=== PATIENT | female | born 1950 | race Caucasian/White ===

== ENCOUNTER 2023-05-14 15:31 | Emergency (ER) | payer MEDICARE, SELFPAY ==
[2023-05-14] VITALS (10 sets, daily range): BP systolic 115–155; BP diastolic 66–81; PULSE 64–74; RESP 15–16; TEMP 36.7; O2SAT 93–98; BMI 22.6
--- NOTE | 2023-05-14 15:39 | XR_ITS ---
FINAL REPORT CLINICAL HISTORY: fall, hip and knee pain COMPARISON: None FINDINGS: AP and lateral views of the left tibia and fibula were obtained. There is no prior exam for comparison. There is no acute fracture of the left tibia or fibula. On the lateral view only there is irregularity of the distal femur, and appears to represent a fracture. The knee and ankle appear intact. The soft tissues are normal. IMPRESSION: No acute osseous abnormality of the left tibia or fibula. On the lateral view only, there is irregularity of the distal femur which appears to represent a nondisplaced fracture. Reviewed, Interpreted and Dictated by David Amato III, MD Transcribed by Adeline Navarro Authenticated and [facility]
--- NOTE | 2023-05-14 15:39 | XR_ITS ---
FINAL REPORT CLINICAL HISTORY: fall, hip and knee pain FINDINGS: .2 views of the left femur were obtained The radiographs are suboptimal. Postoperative changes are seen from left hip arthroplasty. There is irregularity of the distal femur best visualized on the lateral view. This is most worrisome for a nondisplaced fracture. Osteopenia is noted. IMPRESSION: Findings worrisome for a nondisplaced fracture of the distal femur. Follow-up radiographs or CT could further evaluate. Authenticated and [facility]
--- NOTE | 2023-05-14 15:39 | XR_ITS ---
FINAL REPORT CLINICAL HISTORY: fall, hip and knee pain COMPARISON: None FINDINGS: AP and frog leg views of the left hip were obtained. There is no prior exam for comparison. There is no acute fracture or dislocation. The patient has undergone a prior left hip arthroplasty. There is slight irregularity of the inferior pubic ramus that may represent a remote fracture. Soft tissues are within normal limits. IMPRESSION: No acute osseous abnormality of the left hip. Prior left hip arthroplasty. Slight irregularity of the inferior pubic ramus that may represent a remote fracture. Reviewed, Interpreted and Dictated by Davdi Amato III, MD Transcribed by Adeline Navarro Authenticated and [facility]
--- NOTE | 2023-05-14 15:39 | XR_ITS ---
FINAL REPORT CLINICAL HISTORY: fall, hip and knee pain COMPARISON: Prior femur film 05/14/2023 FINDINGS: 3 views of the left knee reveal irregularity of the posterior aspect of the lateral femoral condyle consistent with a nondisplaced fracture. The bony alignment is normal. A moderate joint effusion or hemarthrosis is present. There is soft tissue fullness in the popliteal fossa that may represent a popliteal cyst. IMPRESSION: Irregularity of the posterior aspect of the lateral femoral condyle consistent with a nondisplaced fracture. A moderate effusion or hemarthrosis is present. Reviewed, Interpreted and Dictated by David Amato III, MD Transcribed by Adeline Navarro Authenticated and . [facility]
--- NOTE | 2023-05-14 15:49 | HMH.EDGENADL ---
Discharge Plan Disposition Patient Disposition: Home, Self-Care Condition: Good Prescriptions Prescriptions: New oxycodone 5 mg tablet 5 mg PO Q6H PRN (Reason: pain) Qty: 10 0RF No Action atorvastatin 20 mg tablet 20 mg PO DAILY glipizide 5 mg tablet 5 mg PO DAILY dapagliflozin propanediol [Farxiga] 10 mg tablet 10 mg PO DAILY famotidine 20 mg tablet 20 mg PO DAILY metformin 1,000 mg tablet 1,000 mg PO BID losartan 25 mg tablet 25 mg PO DAILY furosemide 20 mg tablet 20 mg PO DAILY loratadine 10 mg tablet 10 mg PO DAILY Eliquis 5 mg tablet 5 mg PO DAILY Referrals Follow up/Referrals: Yvette Gaspar PA [Primary Care Provider] - See instructions Donell Shin DO [Staff Physician] - See instructions Activity Restrictions/Add. Instructions Additional Instructions/Restrictions: Call your family doctor to establish care for this visit to the emergency department and schedule follow-up within 48 hours to ensure improvement. If you have any worsening of your condition or any other concerning signs or symptoms, return to the emergency department or your primary care doctor for further evaluation. Do not bear weight/walk on that leg until following up with Dr. Shin with orthopedics. His information has been listed here, call him to schedule further follow-up. Take Tylenol 1000 mg every 6 hours (4 times daily) and ibuprofen 400 mg every 6 hours (4 times daily) as needed with food and water to prevent GI upset and kidney damage. Oxycodone has been sent to the pharmacy for breakthrough pain. Clinical Impressions Clinical Impression: Fracture of distal end of femur Qualifiers: Encounter type: initial encounter Fracture type: closed Fracture morphology: unspecified fracture morphology Laterality: left Qualified Code(s): S72.402A - Unspecified fracture of lower end of left femur, initial encounter for closed fracture Fracture of tibial plateau, closed Qualifiers: Encounter type: initial encounter Laterality: left Qualified Code(s): S82.142A - Displaced bicondylar fracture of left tibia, initial encounter for closed fracture Hemarthrosis involving knee joint Qualifiers: Laterality: left Qualified Code(s): M25.062 - Hemarthrosis, left knee Discharge ED Provider: Tej Vera General Adult HPI <HEBER Shaikh - Last Filed: 05/14/23 19:06> General Chief complaint: PAIN Stated complaint: FALL Time Seen by Provider: 05/14/23 15:33 Mode of Arrival: EMS Source of Information: Patient and EMS Limitations: No Limitations Description of Symptoms (Recalled from ER Triage Doc. by RN): pt presents from [facility]. pt reports she had a fall today. she was walking to the [place] with her rollator and had a fall. pt reports she had pain currently in left knee. History of Present Illness HPI narrative: Patient presents after a fall at her assisted. She was using her rollator and tripped falling straight down onto her left knee. Patient was unable to ambulate after however she did not try because of the pain. She did not lose consciousness. Patient denies chest pain fever chills hemoptysis hematochezia melena nausea vomit diarrhea. Related Data Home Medications Medication Instructions Recorded Confirmed apixaban 5 mg tablet (Eliquis) 5 mg PO DAILY 05/14/23 05/14/23 atorvastatin 20 mg tablet 20 mg PO DAILY 05/14/23 05/14/23 dapagliflozin propanediol 10 mg 10 mg PO DAILY 05/14/23 05/14/23 tablet (Farxiga) famotidine 20 mg tablet 20 mg PO DAILY 05/14/23 05/14/23 furosemide 20 mg tablet 20 mg PO DAILY 05/14/23 05/14/23 glipizide 5 mg tablet 5 mg PO DAILY 05/14/23 05/14/23 loratadine 10 mg tablet 10 mg PO DAILY 05/14/23 05/14/23 losartan 25 mg tablet 25 mg PO DAILY 05/14/23 05/14/23 metformin 1,000 mg tablet 1,000 mg PO BID 05/14/23 05/14/23 Previous Rx's Medication Instructions Recorded oxycodone 5 mg tablet 5 mg PO Q6H PRN pain #10 tabs 05/14/23 Allergies Allergy/AdvReac Type Severity Reaction Status Date / Time No Known Allergies Allergy Verified 05/14/23 15:48 REPLACED BY [facility] <HEBER Shaikh - Last Filed: 05/14/23 19:06> REPLACED BY [facility] Disclaimer: The information contained in this section may have been updated after the patient was seen, as this information can be updated by other users. Medical History (Updated 05/14/23 @ 19:05 by HEBER Shaikh) HTN (hypertension) CAD (coronary artery disease) GERD (gastroesophageal reflux disease) CHF (congestive heart failure) Diabetes Social History (Updated 05/14/23 @ 19:06 by HEBER Shaikh) Smoking Status: Never smoker alcohol intake: current current occupational status: retired Travel in the last 8 weeks: None <HEBER Shaikh - Last Filed: 05/14/23 19:06> ROS Obtained: Yes Systems reviewed as appropriate & no additional complaints except as documented Physical Exam <HEBER Shaikh - Last Filed: 05/14/23 19:06> General General appearance: alert and in no apparent distress Head Head exam: atraumatic and normal inspection Eye Eye exam: Present normal appearance, PERRL and EOMI ENT ENT exam: Present normal exam, normal oropharynx and mucous membranes moist Neck Neck exam: Present normal inspection and full ROM Chest Chest inspection: Present normal inspection and symmetric chest wall rise Respiratory Respiratory exam: Present normal lung sounds bilaterally; Absent respiratory distress Cardiovascular Cardiovascular exam: Present regular rate, normal rhythm, normal heart sounds, +S1 and +S2 Abdominal Exam Abdominal exam: Present soft and normal bowel sounds; Absent tenderness, guarding or rebound Neurological Exam Neurological exam: Present alert and oriented X3 (Patient appears to be oriented I do not know what her normal baseline is.) Psychiatric Psychiatric exam: Present normal affect and normal mood Skin Skin exam: Present warm, dry and normal color Lymphatic Lymphatic Findings: no adenopathy Other Other exam information: 3 unaffected extremities are intact grossly to exam with full range of motion. Patient is able to independently move her hip without pain. Palpation of the left lower extremity shows no tenderness at the hip however it does show what appears to be a joint effusion at the left knee. No obvious deformity noted. I was able to extend the leg to approximately 140/150 degrees patient actively resists me into full extension. Medical Decision Making <HEBER Shaikh - Last Filed: 05/14/23 19:06> Medical Records Medical records reviewed: Yes I reviewed the patient's medical records. Knag Inquiry Pt receiving controlled substance: No Vital Signs: 05/14/23 15:32 05/14/23 16:00 05/14/23 17:00 Temperature 98.0 F Temperature Source Oral Pulse Rate 74 68 Pulse Rate [Left Radial] 73 Respiratory Rate 15 Blood Pressure 134/72 134/73 Blood Pressure [Right Arm] 155/80 H Blood Pressure Mean Blood Pressure Mean [Right Arm] 105 02 Sat by Pulse Oximetry 96 96 93 L Oxygen Delivery Method Room Air Room Air Room Air 05/14/23 18:00 05/14/23 18:30 05/14/23 19:00 Temperature Temperature Source Pulse Rate 67 69 67 Pulse Rate [Left Radial] Respiratory Rate Blood Pressure 130/70 130/70 132/72 Blood Pressure [Right Arm] Blood Pressure Mean Blood Pressure Mean [Right Arm] 02 Sat by Pulse Oximetry 98 95 97 Oxygen Delivery Method Room Air Room Air 05/14/23 19:30 05/14/23 20:00 05/14/23 20:30 Temperature Temperature Source Pulse Rate 65 64 65 Pulse Rate [Left Radial] Respiratory Rate 16 16 Blood Pressure 118/67 129/68 115/66 Blood Pressure [Right Arm] Blood Pressure Mean 91 Blood Pressure Mean [Right Arm] 02 Sat by Pulse Oximetry 96 97 97 Oxygen Delivery Method Room Air Room Air Lab Data Lab results reviewed: Yes I reviewed the patient's lab results. Orders (Tests/Meds): ED MEDICATIONS Discontinued Medications Generic Name Dose Route Start Last Admin Trade Name Freq PRN Reason Stop Dose Admin Acetaminophen 1,000 mg 05/14/23 15:39 05/14/23 15:56 Acetaminophen 1,000mg/100ml Vial IV 05/14/23 15:40 1,000 mg ONCE ONE Administration Ketorolac Tromethamine 15 mg 05/14/23 15:39 05/14/23 15:56 Ketorolac 30mg/Ml Vial IV 05/14/23 15:40 15 mg ONCE ONE Administration Morphine Sulfate 4 mg 05/14/23 15:39 05/14/23 15:57 Morphine 4mg/Ml Syringe IV 05/14/23 15:40 4 mg ONCE ONE Administration Ondansetron HCl 4 mg 05/14/23 15:39 05/14/23 15:56 Ondansetron 4mg/2ml Vial IV 05/14/23 15:40 4 mg ONCE ONE Administration ORDERS Category Date Time Status CT knee LT wo con Stat Cat Scan 05/14/23 16:39 Completed Femur XR left 2 views [XR femur LT 2V] Stat Exams 05/14/23 15:39 Completed Fibula/tibia XR left 2 views [XR tibia fibula LT 2V] Exams 05/14/23 15:39 Completed Stat Hip XR left minimum 2 views [XR hip LT 2-3V w/pelvis] Exams 05/14/23 15:39 Completed Stat Knee XR left 3 views [XR knee LT 3V] Stat Exams 05/14/23 15:39 Taken Medical Decision Narrative: In summary patient is a 72-year-old female who presents to the emergency department for evaluation of a fall onto the left knee. Patient is hemodynamically stable upon arrival, and afebrile. Physical exam is remarkable for what appears to be a joint effusion at the left knee however no definitive deformity or bony fracture is felt and palpation of the entirety of the left extremity from hip to ankle. Patient is neurovascularly intact distally in the left lower extremity. The remainder of the 3 unaffected extremities are intact grossly to exam. Pelvis is stable to compression. Differential diagnosis includes bony fractures including of the hip femur tibia-fibula, soft tissue tissue or ligamentous injury etc. Initial workup will be conducted with radiographic imaging. Initial interventions include multimodal analgesia including NSAIDs and opiates. Initial workup reviewed by me shows by my informal interpretation what appears to be a significant distal femur fracture that upon plain film review is nondisplaced but with associated significant joint effusion 2007 CT scan of the knee confirms distal femur fracture and likely Hemarthrosis. Discussed patient management with Dr. Shin of orthopedics. He plans to review the images remotely and then recontact us with recommendations. After review Dr. Shin called back and we consulted again about case management. Patient has a a tibial plateau fracture as well as a distal femur fracture making her have an unstable joint. Plan is for her to be placed in a knee immobilizer and stage surgical intervention after the acute phase with MRI in the interval. Plan is for her to return back to her assisted to be nonweightbearing. Prescriptions for pain medications have been transmitted and patient is to continue her remainder of her home regimen including her Eliquis. <Tej Vera MD - Last Filed: 05/14/23 22:06> Vital Signs: 05/14/23 15:32 05/14/23 16:00 05/14/23 17:00 Temperature 98.0 F Temperature Source Oral Pulse Rate 74 68 Pulse Rate [Left Radial] 73 Respiratory Rate 15 Blood Pressure 134/72 134/73 Blood Pressure [Right Arm] 155/80 H Blood Pressure Mean Blood Pressure Mean [Right Arm] 105 02 Sat by Pulse Oximetry 96 96 93 L Oxygen Delivery Method Room Air Room Air Room Air 05/14/23 18:00 05/14/23 18:30 05/14/23 19:00 Temperature Temperature Source Pulse Rate 67 69 67 Pulse Rate [Left Radial] Respiratory Rate Blood Pressure 130/70 130/70 132/72 Blood Pressure [Right Arm] Blood Pressure Mean Blood Pressure Mean [Right Arm] 02 Sat by Pulse Oximetry 98 95 97 Oxygen Delivery Method Room Air Room Air 05/14/23 19:30 05/14/23 20:00 05/14/23 20:30 Temperature Temperature Source Pulse Rate 65 64 65 Pulse Rate [Left Radial] Respiratory Rate 16 16 Blood Pressure 118/67 129/68 115/66 Blood Pressure [Right Arm] Blood Pressure Mean 91 Blood Pressure Mean [Right Arm] 02 Sat by Pulse Oximetry 96 97 97 Oxygen Delivery Method Room Air Room Air Orders (Tests/Meds): ED MEDICATIONS Discontinued Medications Generic Name Dose Route Start Last Admin Trade Name Nita PRN Reason Stop Dose Admin Acetaminophen 1,000 mg 05/14/23 15:39 05/14/23 15:56 Acetaminophen 1,000mg/100ml Vial IV 05/14/23 15:40 1,000 mg ONCE ONE Administration Ketorolac Tromethamine 15 mg 05/14/23 15:39 05/14/23 15:56 Ketorolac 30mg/Ml Vial IV 05/14/23 15:40 15 mg ONCE ONE Administration Morphine Sulfate 4 mg 05/14/23 15:39 05/14/23 15:57 Morphine 4mg/Ml Syringe IV 05/14/23 15:40 4 mg ONCE ONE Administration Ondansetron HCl 4 mg 05/14/23 15:39 05/14/23 15:56 Ondansetron 4mg/2ml Vial IV 05/14/23 15:40 4 mg ONCE ONE Administration ORDERS Category Date Time Status CT knee LT wo con Stat Cat Scan 05/14/23 16:39 Completed Femur XR left 2 views [XR femur LT 2V] Stat Exams 05/14/23 15:39 Completed Fibula/tibia XR left 2 views [XR tibia fibula LT 2V] Exams 05/14/23 15:39 Completed Stat Hip XR left minimum 2 views [XR hip LT 2-3V w/pelvis] Exams 05/14/23 15:39 Completed Stat Knee XR left 3 views [XR knee LT 3V] Stat Exams 05/14/23 15:39 Taken Medical Decision Narrative: In summary patient is a 72-year-old female who presents to the emergency department for evaluation of a fall onto the left knee. Patient is hemodynamically stable upon arrival, and afebrile. Physical exam is remarkable for what appears to be a joint effusion at the left knee however no definitive deformity or bony fracture is felt and palpation of the entirety of the left extremity from hip to ankle. Patient is neurovascularly intact distally in the left lower extremity. The remainder of the 3 unaffected extremities are intact grossly to exam. Pelvis is stable to compression. Differential diagnosis includes bony fractures including of the hip femur tibia-fibula, soft tissue tissue or ligamentous injury etc. Initial workup will be conducted with radiographic imaging. Initial interventions include multimodal analgesia including NSAIDs and opiates. Initial workup reviewed by me shows by my informal interpretation what appears to be a significant distal femur fracture that upon plain film review is nondisplaced but with associated significant joint effusion 2007 CT scan of the knee confirms distal femur fracture and Hemarthrosis. CT scan also demonstrates lateral tibial plateau fracture. Discussed patient management with Dr. Shin of orthopedics. He plans to review the images remotely and then recontact us with recommendations. After review Dr. Shin called back and we consulted again about case management. Patient has a a tibial plateau fracture as well as a distal femur fracture making her have an unstable joint. Plan is for her to be placed in a knee immobilizer and stage surgical intervention after the acute phase with MRI in the interval. Plan is for her to return back to her assisted to be nonweightbearing. Prescriptions for pain medications have been transmitted and patient is to continue her remainder of her home regimen including her Eliquis. I was consulted by the SUSHIL, and we discussed the complexity of the problems being addressed. I approved the treatment and management plan for this patient?s care in the Emergency Department, thus performing a substantive portion of the medical decision making. Tej Vera MD Critical Care <HEBER Shaikh - Last Filed: 05/14/23 19:06> Critical Care Time Critical Care Time: No
[2023-05-14] MEDS: ACETAMINOPHEN 1,000MG/100ML VIAL 1000 MG IV (15:56)
[2023-05-14] MEDS: ONDANSETRON 4MG/2ML VIAL 4 MG IV (15:56)
[2023-05-14] MEDS: KETOROLAC 30MG/ML VIAL 15 MG IV (15:56)
[2023-05-14] MEDS: MORPHINE 4MG/ML SYRINGE 4 MG IV (15:57)
--- NOTE | 2023-05-14 16:39 | CT_ITS ---
PROCEDURE INFORMATION: Exam: CT Left Lower Extremity Without Contrast, Knee Exam date and time: 05/14/2023 5:31 PM Age: 72 years old Clinical indication: Injury or trauma; Fall; Blunt trauma; Knee; Left; Additional info: Fall, joint effusion TECHNIQUE: Imaging protocol: CT of the left lower extremity without contrast was performed. Exam focused on the knee. Radiation optimization: All CT scans at this facility use at least one of these dose optimization techniques: automated exposure control; mA and/or kV adjustment per patient size (includes targeted exams where dose is matched to clinical indication); or iterative reconstruction. COMPARISON: CR XR KNEE LT 3V 05/14/2023 4:13 PM FINDINGS: Bones/joints: Suprapatellar joint space fat fluid level having a moderate volume. Lateral femoral condyle minimally displaced fracture with oblique line at the metaphysis condyle confluence and extends to the trochlear groove. Vertically oriented fracture involving the lateral tibial plateau with a proximally 2.8 mm of articular offset best seen on image 39 of series 1001. Soft tissues: Normal. Other findings: Lower extremity lateral compartment flat fluid level with collection measuring 12.7 x 3.3 x 4.5 cm. IMPRESSION: 1. Lower extremity lateral compartment flat fluid level with collection measuring 12.7 x 3.3 x 4.5 cm. 2. Suprapatellar joint space fat fluid level having a moderate volume. 3. Lateral femoral condyle minimally displaced fracture with oblique line at the metaphysis-condyle confluence and extends to the trochlear groove. 4. Vertically oriented fracture involving the lateral tibial plateau with a proximally 2.8 mm of articular offset best seen on image 39 of series 1001.
--- NOTE | 2023-05-14 18:28 | PC.NURSE ---
Dr. Vera s/w Dr. Shin
--- NOTE | 2023-05-14 19:18 | PC.NURSE ---
report called to SRI at [facility].
--- NOTE | 2023-05-14 19:23 | PC.NURSE ---
Attempted to call EMS, but they are not available at this time. They will call us back when not on 911 call
--- NOTE | 2023-05-14 19:37 | PC.NURSE ---
Rounded on patient, no needs voiced at this time.
--- NOTE | 2023-05-14 20:47 | PC.NURSE ---
Rounded on patient. She is currently sleeping with even, equal chest rise. NAD. Still awaiting EMS transport back to SNF
--- NOTE | 2023-05-14 22:15 | PC.NURSE ---
Patient given dinner and is now resting comfortably. RUBENS, MELODY. She is aware we are waiting for EMS transport.
== END 2023-05-14 22:44 | disposition home or self-care (01) ==
PROVIDERS: Emergency Provider Emergency Medicine; PCP Physician Assistant
DX: S72.402A Unspecified fracture of lower end of left femur, initial encounter for closed fracture (principal); S82.142A Displaced bicondylar fracture of left tibia, initial encounter for closed fracture; M25.062 Hemarthrosis, left knee; E11.9 Type 2 diabetes mellitus without complications; I11.0 Hypertensive heart disease with heart failure; I25.10 Atherosclerotic heart disease of native coronary artery without angina pectoris; K21.9 Gastro-esophageal reflux disease without esophagitis; I50.9 Heart failure, unspecified; W18.30XA Fall on same level, unspecified, initial encounter; Z79.01 Long term (current) use of anticoagulants; Z79.84 Long term (current) use of oral hypoglycemic drugs
CPT/HCPCS: 73502; 73552; 73562; 73590; 73700; 96374; 96375; 99285; J0131; J2405